=== PATIENT | female | born 2005 | race Caucasian/White ===

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

== ENCOUNTER 2023-06-28 13:00 | Emergency (ER) | payer OTHER, SELFPAY ==
--- NOTE | ~2023-06-28 | CT_ITS ---
EXAMINATION: CT ABDOMEN AND PELVIS WITHOUT CONTRAST CLINICAL INFORMATION: Right flank pain COMPARISON: None available. TECHNIQUE: Multidetector volumetric imaging was performed from the superior aspect of the liver through the pubic symphysis. Sagittal and coronal reformatted images were obtained on the technologist's workstation. This CT examination was performed using dose optimization techniques as appropriate, variously including the following: *Automated exposure control *Adjustment of mA and/or kV according to patient size (this includes techniques or standardized protocols for targeted exams where dose is matched to indication/reason for exam; i.e. extremities or head) *Use of iterative reconstruction technique DLP: 651 mGy-cm FINDINGS: LUNG BASES: The visualized lung bases are unremarkable. LIVER, GALLBLADDER, AND BILIARY TREE: The liver is normal in size, shape, and attenuation. No focal hepatic lesion or biliary ductal dilatation is present. The gallbladder is unremarkable with no evidence of radiopaque gallstones, gallbladder wall thickening, or obvious pericholecystic inflammatory changes. PANCREAS: Unremarkable. SPLEEN: Unremarkable. ADRENAL GLANDS: Unremarkable. KIDNEYS AND URETERS: The kidneys are normal in size, shape, and attenuation. No hydronephrosis, hydroureter, or calculi seen. No perinephric stranding. BLADDER: Not optimally distended and not well evaluated. GASTROINTESTINAL TRACT: The small and large bowel are unremarkable. The appendix is unremarkable. ABDOMINAL WALL: No significant hernia is appreciated. LYMPH NODES: Normal. VASCULAR: Unremarkable. PELVIC VISCERA: Unremarkable. OSSEOUS STRUCTURES: Unremarkable. CT/CT abdomen pelvis wo IV con IMPRESSION: Unremarkable exam. No stone or hydronephrosis. Fleischner guidelines were followed.
[2023-06-28 13:13] VITALS: BP 129/90; PULSE 85; RESP 18; TEMP 36.6; O2SAT 99; BMI 35.6
--- NOTE | 2023-06-28 13:14 | ED.GENADULT ---
HPI - General Adult General Chief complaint: Abdominal Pain Stated complaint: Kidney Pain Time Seen by Provider: 06/28/23 15:12 Source: patient Mode of arrival: ambulatory Limitations: no limitations History of Present Illness HPI narrative: Patient is a 17-year-old female presenting to the emergency department with complaint of right flank pain which she states radiates to right lower quadrant of abdomen. States pain began 2 days ago in left lower back, then moved to right flank. She reports mild dysuria but denies any frequency or hematuria. Denies any fevers. Denies any abdominal pain, nausea, vomiting, diarrhea, constipation. States she took an cjvc-ajg-ccpxych medication for UTI without change in symptoms. Has not taken any other nwuc-eck-kkekaxc medications. Denies personal history of kidney stones but reports family history of kidney stones. complaint: Right flank pain Onset (ago): day(s) Location: right (Flank) Radiation: abdomen Severity: severe Severity scale (1-10): 8 Quality: burning Pain Consistency: constant Relieving factors: none Exacerbating factors: none Associated symptoms: other (Dysuria) Related Data Previous Rx's Medication Instructions Recorded metoprolol tartrate 25 mg tablet 25 mg PO BID PRN Palpitation #60 11/28/22 tabs Allergies Allergy/AdvReac Type Severity Reaction Status Date / Time No Known Allergies Allergy Verified 06/28/23 13:13 Review of Systems Review of Systems: As per HPI. Yes all other systems are reviewed and are negative Constitutional: Constitutional: Reports as per HPI [facility] Social History Social History Alcohol intake: never Advance Directives: No Advance Directives Information Provided: No Physical Exam ED Vital Signs: Vital Signs - 24 hr 06/28/23 13:13 06/28/23 16:00 Temperature 97.9 F 98.4 F Pulse Rate 85 99 Respiratory Rate 18 18 Blood Pressure 129/90 H 128/80 Pulse Oximetry 99 99 Oxygen Delivery Method Room Air Room Air BMI result Body Mass Index 35.6 Vital signs have been reviewed and appear to be correct. Blood pressure normal. Heart rate normal. Respiratory rate normal. Temperature normal. Oxygen saturation normal. Const General: cooperative, healthy appearing and no acute distress Orientation/consciousness: oriented to person, oriented to place, oriented to time and patient oriented x3 Limitations: no limitations HENMT Head: Yes normocephalic and Yes atraumatic Ears: external ears normal General nose exam: Normal external nose present Face and sinus: Yes face symmetric Mouth: oropharynx normal and moist mucous membranes Throat: Yes uvula midline Eyes Pupils: Equal, round and reactive pupils present Neck Neck: Yes normal visual inspection and Yes supple Resp Effort & Inspection: normal respiratory effort and able to speak in complete sentences Auscultation: clear to auscultation bilaterally Cardio Rate: regular rate Rhythm: regular rhythm Heart sounds: S1 normal heart sound present and S2 normal heart sound present GI Palpation (GI): Soft to palpation and nontender Auscultation: normoactive bowel sounds General: Yes CVA tenderness on the right Back/Spine/Pelvis Back: CVA tenderness Skin General skin exam: elasticity normal and turgor normal Neuro General: oriented to person, oriented to place, oriented to time, patient oriented x3, moves all extremities, no focal motor deficits and CN's II-XI intact bilaterally Cranial nerves: Yes Equal, round and reactive pupils present Cognition (Neuro): normal cognition Extrem General: Yes full ROM, Yes no pedal edema and Yes no calf tenderness Psych Mental Status: mental status grossly normal Affect: normal affect Thought process: Normal thought process present Course Course Course Narrative: This is an RME: Additional HPI, ROS, PE not included below will be deferred to primary provider. 17 yo f presents w/ kidney pain X 2 days started on left now on right. Slight dysuria but no other urinary sx. Plan- labs, UA Medications Administered Discontinued Medications Generic Name Dose Route Start Last Admin Trade Name Freq PRN Reason Stop Dose Admin Ketorolac Tromethamine 15 mg 06/28/23 16:18 06/28/23 16:27 Ketorolac Tromethamine 15 Mg/Ml Vial IM 06/28/23 16:19 15 mg ONCE ONE Administration Medical Decision Making Medical Decision Making [facility] Narrative: Patient is a 17-year-old female presenting to the emergency department with complaint of right flank pain which she states radiates to right lower quadrant of abdomen. On exam patient is awake, A+Ox3, VS WNL, afebrile, normal neurological exam without focal deficits, physical exam findings as above. Given reported symptoms and physical exam findings, initial differential includes UTI, pyelonephritis, renal calculi, ureteral calculi. Labs notable for no leukocytosis, no evidence of MARINA, slightly elevated alk-phos. CT notable for no evidence of calculi or hydronephrosis. My interpretation is in agreement with the radiologist's interpretation. Results discussed with patient and all questions answered. Instructed patient to follow-up with primary care provider. Advised Tylenol and ibuprofen as needed for pain. Return precautions discussed at bedside. Patient verbalized understanding of and agreement with plan. Differential Diagnosis Differential Diagnoses: The differential diagnosis associated with the presentation includes As per [facility]. Admission/Observation Consideration of admission/observation: Escalation of care including admission/observation considered Lab Data [facility] Lab Attestation statement: I reviewed the patient's lab results. As per [facility]. 06/28/23 13:38 06/28/23 13:38 Labs: Lab Results 06/28/23 Range/Units 13:38 WBC 7.3 (4.8-10.8) X10*3/uL RBC 5.61 H (4.20-5.50) X10*6/uL Hgb 14.9 (12.0-16.0) g/dl Hct 46.6 (37.0-47.0) % MCV 83.1 (80.0-98.0) fL MCH 26.6 L (27.0-33.0) pg MCHC 32.0 (31.0-35.0) g/dl RDW 13.6 (11.0-16.0) % Plt Count 362 (160-400) X10*3/uL MPV 10.0 (9.4-12.3) fL Immature Gran % (Auto) 0.3 (0.0-0.4) % Neut % (Auto) 32.6 L (45-73) % Lymph % (Auto) 56.8 H (20-40) % [place] % (Auto) 7.3 (2-11) % Eos % (Auto) 1.9 (0-4) % Baso % (Auto) 1.1 (0-2) % Lymph # (Auto) 4.1 (1.2-4.9) X10*3/uL [place] # (Auto) 0.5 (0.1-1.2) X10*3/uL Eos # (Auto) 0.1 (0.0-0.4) X10*3/uL Baso # (Auto) 0.1 (0.0-0.2) X10*3/uL Abs Immat Gran (auto) 0.02 (0.00-0.03) X10*3/uL Absolute Neuts (auto) 2.4 (2.0-8.3) x10*3/uL Absolute Nucleated RBC 0.000 (0.0-0.012) X10*3/uL Nucleated RBC % (auto) 0.0 (0.0-0.2) /100WBC Sodium 135 (135-145) mmol/L Potassium 4.4 (3.3-5.1) mmol/L Chloride 107 (96-108) mmol/L Carbon Dioxide 18 L (22-29) mmol/L Anion Gap 14 (12-20) BUN 6 L (9-16) mg/dL Creatinine 0.68 (0.5-1.4) mg/dL Estim Creat Clear Calc 142.6 Estimated GFR > 60 Random Glucose 65 (60-115) mg/dL Calcium 10.4 H D (8.4-10.2) mg/dL Total Bilirubin 0.3 (0.0-1.0) mg/dL AST 22 (5-31) U/L ALT 24 (0-31) U/L Alkaline Phosphatase 127 H (39-117) U/L Total Protein 8.9 H (6.5-8.0) g/dL Albumin 4.5 (3.5-5.0) g/dL Urine Color Yellow Urine Appearance Clear Urine pH 6.0 (5.0-9.0) Ur Specific [place] <= 1.005 (1.005-1.025) Urine Protein Negative (Neg-Trace) mg/dL Urine Glucose (UA) Negative (Negative) mg/dL Urine Ketones Negative (Negative) mg/dL Urine Blood Negative (Negative) Urine Nitrite Negative (Negative) Ur Leukocyte Esterase Negative (Negative) Urine Test NEGATIVE (NEGATIVE) Independent Interpretation I performed an independent interpretation of an: CT Scan Interpretation: No evidence of calculi or hydronephrosis on CT Radiology Impression Discussion of test interpretation with radiology: I have reviewed the radiologist's reading. Radiologist Impression: CT/CT abdomen pelvis wo IV con IMPRESSION: Unremarkable exam. No stone or hydronephrosis. Fleischner guidelines were followed. External Record Review External record reviewed: Inpatient record, Office record and Outpatient record Discharge Plan Discharge Clinical Impression: Acute right flank pain Patient Disposition: Home, Self-Care Instructions: Flank Pain (ED) Additional Instructions: Your evaluated in the emergency department today for right flank pain. Your evaluation did not show evidence of conditions requiring emergent medical treatment at this time. Please follow-up with your primary care provider this week. You can take 600 mg ibuprofen or 650 mg of Tylenol every 6 hours as needed for pain. Be sure to drink plenty of fluids. Return to the emergency department if you develop worsening pain, persistent vomiting, fever 100.4? F or greater, or any other concerning symptoms. Prescriptions: No Action metoprolol tartrate 25 mg tablet 25 mg PO BID PRN (Reason: Palpitation) Qty: 60 0RF
[2023-06-28 13:44] LABS: MANUAL DIFF FLAG NO
[2023-06-28 13:47] LABS: Appearance Urine Clear; Color Urine Yellow; Glucose Urine UA Negative (Negative); Leukocyte Esterase Urine Negative (Negative); Nitrite Urine Negative (Negative); Specific Gravity - Urine <= 1.005 (1.005-1.025); Urine Blood Negative (Negative); Urine Ketones Negative (Negative); Urine Protein Negative (Neg-Trace)
[2023-06-28 13:49] LABS: UPreg QC Valid YES; Urine Pregnancy NEGATIVE (NEGATIVE)
[2023-06-28 13:51] LABS: Basophils Absolute Auto 0.1 X10*3/uL (0.0-0.2); Basophils Percent Auto 1.1 % (0-2); Eosinophils Absolute Auto 0.1 X10*3/uL (0.0-0.4); Eosinophils Percent Auto 1.9 % (0-4); Hematocrit 46.6 % (37.0-47.0); Hemoglobin 14.9 g/dl (12.0-16.0); Imm Gran Abs Auto 0.02 X10*3/uL (0.00-0.03); Imm Gran Pct Auto 0.3 % (0.0-0.4); Lymphocytes Absolute Auto 4.1 X10*3/uL (1.2-4.9); Lymphocytes Percent Auto 56.8 % (20-40); Mean Corpuscular Hemoglobin 26.6 pg (27.0-33.0); Mean Corpuscular Volume 83.1 fL (80.0-98.0); Monocytes Absolute Auto 0.5 X10*3/uL (0.1-1.2); Monocytes Percent Auto 7.3 % (2-11); Neutrophils Absolute Auto 2.4 x10*3/uL (2.0-8.3); Neutrophils Percent Auto 32.6 % (45-73); Platelet Count 362 X10*3/uL (160-400); Red Blood Count 5.61 X10*6/uL (4.20-5.50); Red Cell Distribution Width 13.6 % (11.0-16.0); White Blood Count 7.3 X10*3/uL (4.8-10.8)
[2023-06-28 14:08] LABS: Alanine Aminotransferase 24 U/L (0-31); Albumin Level 4.5 g/dL (3.5-5.0); Alkaline Phosphatase 127 U/L (39-117); Anion Gap 14 (12-20); Aspartate Amino Transferase 22 U/L (5-31); Bilirubin Total 0.3 mg/dL (0.0-1.0); Blood Urea Nitrogen 6 mg/dL (9-16); Calcium 10.4 mg/dL (8.4-10.2); Carbon Dioxide 18 mmol/L (22-29); Chloride 107 mmol/L (96-108); Creatinine Clr Calc Pharmacy 142.6; Estimated Glomerular Filt Rate > 60; Glucose Random 65 mg/dL (60-115); Potassium 4.4 mmol/L (3.3-5.1); Sodium 135 mmol/L (135-145); Total Protein 8.9 g/dL (6.5-8.0)
[2023-06-28 16:00] VITALS: BP 128/80; PULSE 99; RESP 18; TEMP 36.9; O2SAT 99
--- NOTE | 2023-06-28 16:09 | PC.NURSE ---
patient a&ox3 pt states since being brought into the room her rt flank pain has increased, vss, call lanier within reach, will continue to monitor
[2023-06-28] MEDS: Ketorolac Tromethamine 15 MG/ML VIAL IM (16:27)
== END 2023-06-28 18:19 | disposition home or self-care (01) ==
PROVIDERS: Physician Assistant; Emergency Provider Emergency Medicine Emergency Medical Services; PCP Pediatrics
DX: R10.9 Unspecified abdominal pain (principal)
CPT/HCPCS: 36415; 74176; 80053; 81003; 81025; 85025; 96372; 99284; J1885

== ENCOUNTER 2025-02-16 22:16 | Emergency (ER) | payer OTHER, SELFPAY ==
[2025-02-16 22:32] VITALS: BP 119/79; PULSE 139; RESP 16; TEMP 39.2; O2SAT 99; BMI 35.1
--- NOTE | 2025-02-16 22:37 | ECG_ITS ---
Test Reason : CHES PAIN Blood Pressure : */* mmHG Vent. Rate : 135 BPM Atrial Rate : 135 BPM P-R Int : 132 ms QRS Dur : 76 ms QT Int : 288 ms P-R-T Axes : 53 59 52 degrees QTcB Int : 432 ms Sinus tachycardia Otherwise normal ECG When compared with ECG of 27-Nov-2022 22:45, No significant change was found Referred By: Generic ED Physician Electronically Signed By: TAIWO SRINIVASAN MD
[2025-02-16 22:57] LABS: MANUAL DIFF FLAG NO
[2025-02-16 22:58] LABS: Hematocrit 40.0 % (37.0-47.0); Hemoglobin 13.3 g/dl (12.0-16.0); Imm Gran Abs Auto 0.01 X10*3/uL (0.00-0.03); Imm Gran Pct Auto 0.1 % (0.0-0.4); Lymphocytes Absolute Auto 1.5 X10*3/uL (1.2-4.9); Mean Corpuscular HGB Conc 33.3 g/dl (31.0-35.0); Mean Corpuscular Hemoglobin 27.8 pg (27.0-33.0); Mean Corpuscular Volume 83.5 fL (80.0-98.0); NRBC Abs Auto 0.000 X10*3/uL (0.0-0.012); NRBC Pct Auto 0.0 /100WBC (0.0-0.2); Platelet Count 302 X10*3/uL (160-400); Red Blood Count 4.79 X10*6/uL (4.20-5.50); White Blood Count 6.9 X10*3/uL (4.8-10.8)
[2025-02-16 23:12] LABS: Alanine Aminotransferase 64 U/L (0-31); Albumin Level 4.4 g/dL (3.5-5.0); Alkaline Phosphatase 110 U/L (39-117); Anion Gap 13 (12-20); Aspartate Amino Transferase 35 U/L (5-31); Blood Urea Nitrogen 8 mg/dL (9-16); Calcium 9.2 mg/dL (8.4-10.2); Carbon Dioxide 23 mmol/L (22-29); Chloride 107 mmol/L (96-108); Creatinine Clr Calc Pharmacy 147.9; Estimated Glomerular Filt Rate > 60; Potassium 3.8 mmol/L (3.3-5.1); Sodium 139 mmol/L (135-145); Total Protein 7.8 g/dL (6.5-8.0)
[2025-02-16 23:22] LABS: Troponin-I High Sensitivity < 2.7 ng/L (<3.5-17.0)
[2025-02-16 23:24] LABS: Appearance Urine Clear; Glucose Urine UA Negative (Negative); PH 7.0 (5.0-9.0); Specific Gravity - Urine 1.010 (1.005-1.025); UMIC TRIGGER UACC YES
[2025-02-16 23:29] LABS: UACC Culture Trigger YES
[2025-02-16 23:32] VITALS: BP 121/78; PULSE 126; RESP 18; TEMP 38.6; O2SAT 99
[2025-02-16 23:35] LABS: Resp Syncy Virus RNA Qual PCR NEGATIVE (Negative); SARS COV2 PCR INHOUSE NEGATIVE (Negative)
[2025-02-16] MEDS: SODIUM CHLORIDE 2697 ML IV (23:38)
[2025-02-17 00:32] VITALS: BP 122/75; PULSE 112; RESP 19; O2SAT 99
--- NOTE | 2025-02-17 02:24 | ED_ITS ---
HPI - Chest Pain General Chief Complaint: Chest Pain Stated Complaint: ?uti,dizziness,rapid heart rate Time Seen by Provider: 02/16/25 22:59 Source: patient Limitations: no limitations History of Present Illness ED Provider: Sharmin Wagner PA-C HPI narrative: 19-year-old female with a history of morbid obesity presents with dysuria x3 days. Associated copious vaginal discharge. Denies risk for STD. Denies abdominal pain, nausea, vomiting or known fever. Denies back pain. Related Data Previous Rx's ?Medication ?Instructions ?Recorded metoprolol tartrate 25 mg tablet 25 mg PO BID PRN Palp itation #60 11/28/22 tabs cephalexin 500 mg capsule 500 mg PO Q12H #13 caps 02/06 Allergies Allergy/AdvReac Type Severity Reaction Status Date / Time No Known Allergies Allergy Verified 02/16/25 22:36 Review of Systems 2 Review of Systems: Yes all other systems are reviewed and are negative Constitutional: Constitutional: Denies fatigue and Denies fever(s) Cardiovascular: Cardiovascular: Denies chest pain and Denies dyspnea Respiratory: Respiratory: Denies cough and Denies dyspnea Gastrointestinal: Gastrointestinal: Denies abdominal pain, Denies nausea and Denies vomiting Genitourinary: Genitourinary: Reports dysuria, Denies flank pain and Reports vaginal discharge Musculoskeletal: Musculoskeletal: Denies back pain Endocrine: Endocrine: Denies fatigue PMFSH Past Medical History Attestation statement: The following information was validated with the patient. Social History Social History Alcohol intake: never Advance Directives: No Advance Directives Information Provided: No Do you have a plan to hurt others: No Plan Physical Exam 2 Vital Signs: Vital Signs: Last Vital Signs Temp 98.0 F 02/17/25 03:35 Pulse 93 02/17/25 03:35 Resp 18 02/17/25 03:35 BP 106/59 L 02/17/25 03:35 Pulse Ox 98 02/17/25 03:35 O2 Del Method Room Air 02/17/25 03:35 BMI result Body Mass Index 35.1 Const: Other: Alert Orientation/consciousness: patient oriented x3 Resp: Effort & Inspection: normal respiratory effort Cardio: Other: Normal peripheral perfusion GI: Other: Abdomen is soft, nontender nondistended, obese abdomen no guarding : Other: Normal external genitalia, copious amounts of clear mucousy discharge, cervix not friable, it is pink, no adnexal tenderness no CMT General: Yes no CVA tenderness Back/Spine/Pelvis: Back: no CVA tenderness Skin: Other: Warm dry no rash Neuro: General: patient oriented x3, gait normal, no focal motor deficits and CN's II-XI intact bilaterally Psych: Other: Cooperative Course Reevaluation(s) Reevaluation #1: At 11:20 p.m. on February 16, a sepsis focused exam was performed. The patient has a fever she is tachycardic, giving weight based IV fluid, Tylenol and starting empiric ceftriaxone. Time: 23:20 Medications Administered Discontinued Medications Generic Name Dose Route Start Last Admin Trade Name Freq PRN Reason Stop Dose Admin Acetaminophen 975 mg 02/16/25 22:40 02/16/25 23:35 Acetaminophen 325 Mg Tablet PO 02/16/25 22:41 975 mg ONCE ONE Administration Ceftriaxone Sodium 2 gm 02/16/25 23:20 02/16/25 23:35 Ceftriaxone Sodium 2 Gm Vial IVPUSH 02/16/25 23:21 2 gm ONCE ONE Administration Sodium Chloride 2,697 mls @ 2,697 mls/hr 02/16/25 23:00 02/17/25 02:32 Ns 30 ml/kg infuse over 1 hr (2697 ml) 02/16/25 23:59 Infused IV Infusion .Q1H STA Ketorolac Tromethamine 15 mg 02/16/25 23:46 02/17/25 00:31 Ketorolac Tromethamine 15 Mg/Ml Vial IVPUSH 02/16/25 23:47 15 mg ONCE ONE Administration Medical Decision Making Medical Decision Making [facility] Narrative: 19-year-old female with a history of morbid obesity presents with dysuria x3 days. Associated copious vaginal discharge. Denies risk for STD. Denies abdominal pain, nausea, vomiting or known fever. Denies back pain. No chronic issues History: Per patient I have considered the following differential diagnoses: UTI, pyelonephritis, renal colic, STD, cervicitis, TOA , sepsis Plan: Patient here with complaint of dysuria. She is febrile. Sepsis considered. She has no abdominal pain or back pain to suggest pyelonephritis. She is not having flank pain, she is well-appearing not uncomfortable, to suggest renal colic. I do not believe CT scan is indicated. She is having copious amounts of vaginal discharge. Performed a pelvic exam it is overall unremarkable, it is likely BV. She has no risk for STD. The pelvic exam was unremarkable, she does not require a transvaginal ultrasound. Sepsis measures were initiated, she has been tachycardic and febrile. Tylenol, Toradol, IV fluids and ceftriaxone ordered. This could also be underlying viral syndrome, viral panel ordered. I have independently reviewed the following tests: Labs: No leukocytosis, not anemic, no electrolyte abnormality, lactic 1.7, not , urine infected, vaginal cultures pending Lab Data 02/16/25 22:52 02/16/25 22:52 Labs: Lab Results 02/16/25 02/16/25 02/17/25 Range/Units 22:52 23:15 00:37 WBC 6.9 (4.8-10.8) X10*3/uL RBC 4.79 (4.20-5.50) X10*6/uL Hgb 13.3 (12.0-16.0) g/dl Hct 40.0 (37.0-47.0) % MCV 83.5 (80.0-98.0) fL MCH 27.8 (27.0-33.0) pg MCHC 33.3 (31.0-35.0) g/dl RDW 13.3 (11.0-16.0) % Plt Count 302 (160-400) X10*3/uL MPV 9.0 L (9.4-12.3) fL Immature Gran % (Auto) 0.1 (0.0-0.4) % Neut % (Auto) 58.2 (45-73) % Lymph % (Auto) 22.0 (20-40) % [place] % (Auto) 18.5 H (2-11) % Eos % (Auto) 0.3 (0-4) % Baso % (Auto) 0.9 (0-2) % Lymph # (Auto) 1.5 (1.2-4.9) X10*3/uL [place] # (Auto) 1.3 H (0.1-1.2) X10*3/uL Eos # (Auto) 0.0 (0.0-0.4) X10*3/uL Baso # (Auto) 0.1 (0.0-0.2) X10*3/uL Abs Immat Gran (auto) 0.01 (0.00-0.03) X10*3/uL Absolute Neuts (auto) 4.0 (2.0-8.3) x10*3/uL Absolute Nucleated RBC 0.000 (0.0-0.012) X10*3/uL Nucleated RBC % (auto) 0.0 (0.0-0.2) /100WBC Sodium 139 (135-145) mmol/L Potassium 3.8 (3.3-5.1) mmol/L Chloride 107 (96-108) mmol/L Carbon Dioxide 23 (22-29) mmol/L Anion Gap 13 (12-20) BUN 8 L (9-16) mg/dL Creatinine 0.64 (0.5-1.4) mg/dL Estim Creat Clear Calc 147.9 Estimated GFR > 60 Random Glucose 86 (60-115) mg/dL Lactic Acid 1.7 (0.5-2.0) mmol/L Calcium 9.2 D (8.4-10.2) mg/dL Total Bilirubin 0.3 (0.0-1.0) mg/dL AST 35 H (5-31) U/L ALT 64 H (0-31) U/L Alkaline Phosphatase 110 (39-117) U/L Troponin I High Sens < 2.7 (<3.5-17.0) ng/L Total Protein 7.8 (6.5-8.0) g/dL Albumin 4.4 (3.5-5.0) g/dL Beta HCG, Quant < 2 mIU/mL Urine Color Yellow Urine Appearance Clear Urine pH 7.0 (5.0-9.0) Ur Specific [place] 1.010 (1.005-1.025) Urine Protein Negative (Neg-Trace) mg/dL Urine Glucose (UA) Negative (Negative) mg/dL Urine Ketones Negative (Negative) mg/dL Urine Blood Trace H (Negative) Urine Nitrite Negative (Negative) Ur Leukocyte Esterase Moderate (2+) H (Negative) Urine RBC 6-10 H (0-2) /HPF Urine WBC 11-20 H (0-5) /HPF Ur Squamous Epith Cells 3-5 (0-2) /HPF Urine Bacteria None Seen (None Seen) Hyaline Casts 0-2 (0-2) /LPF Chlam trachomat DNA PCR NOT DETECTED (Not Detect.) Influenza Type A (PCR) NEGATIVE (Negative) Influenza Type B (PCR) NEGATIVE (Negative) N.gonorrhoeae DNA (PCR) NOT DETECTED (Not Detect.) RSV RNA Qual (PCR) NEGATIVE (Negative) SARS-CoV-2 RNA (RT-PCR) NEGATIVE (Negative) T. vaginalis (PCR) NOT DETECTED (Not Detect) Bact vaginosis (PCR) NEGATIVE (Negative) C. krusei/glabrata (PCR) NOT DETECTED (Not Detect) [place] group (PCR) NOT DETECTED (Not Detect) Discharge Plan Discharge Clinical Impression: Fever, Urinary tract infection, Vaginitis Patient Disposition: Home, Self-Care Instructions: Urinary Tract Infection in Women (ED), Fever in Adults (ED), Vaginal Discharge (ED) Additional Instructions: You were found to have a urinary tract infection. See home care instructions. Take the cephalexin as directed. If you develop another fever, you can use [id number] Tylenol 1000 mg taken every 8 hours, alternated with [id number] ibuprofen 600 mg taken every 6 hours with food. You have vaginal cultures pending, you will be contacted by someone from our facility if you screen positive for another infection, a prescription will be sent to your pharmacy. Otherwise follow up with your primary care provider as needed. Prescriptions: New cephalexin 500 mg capsule 500 mg PO Q12H Qty: 13 0RF No Action metoprolol tartrate 25 mg tablet 25 mg PO BID PRN (Reason: Palpitation) Qty: 60 0RF Interventions: ED Discharge Assessment Last Done: 02/17/25 03:35 Discharge Date/Time: 02/17/25 03:37 Print Language: Korean
[2025-02-17 02:47] VITALS: BP 106/63; PULSE 93; RESP 18; TEMP 36.7; O2SAT 98
[2025-02-17 03:32] VITALS: BP 106/59
[2025-02-17 03:35] VITALS: BP 106/59; PULSE 93; RESP 18; TEMP 36.7; O2SAT 98
[2025-02-17 09:30] LABS: Bacterial Vaginosis PCR NEGATIVE (Negative); Candida Group PCR NOT DETECTED (Not Detect); Candida glab krusei PCR NOT DETECTED (Not Detect); Trichomonas vaginalis PCR NOT DETECTED (Not Detect)
[2025-02-17 15:04] LABS: CT PCR NOT DETECTED (Not Detect.); NG PCR NOT DETECTED (Not Detect.)
== END 2025-02-17 03:37 | disposition home or self-care (01) ==
PROVIDERS: Physician Assistant Medical; Emergency Provider Emergency Medicine; PCP Pediatrics
DX: R50.9 Fever, unspecified (principal); N39.0 Urinary tract infection, site not specified; N76.0 Acute vaginitis
CPT/HCPCS: 36415; 80053; 81001; 81515; 83605; 84484; 84702; 85025; 87040; 87086; 87147; 87491; 87591; 87637; 93005; 96361; 96374; 96375; 99284; J0696; J1885

== ENCOUNTER → 2025-02-16 22:37 | Outpatient (BNV) | payer OTHER, SELFPAY | PROVIDERS: Emergency Provider Emergency Medicine; PCP Pediatrics; Visit Provider Internal Medicine Cardiovascular Disease | DX: R00.0 Tachycardia, unspecified (principal) | CPT/HCPCS: 93010 ==